=== PATIENT | female | born 1950 | race Caucasian/White ===

== ENCOUNTER → 2016-08-05 | Outpatient (CLI) | payer OTHER, MEDICARE | END | disposition home or self-care (01) | LOC: CFH 08:56 | PROVIDERS: ATTEND Specialist | DX: Z12.31 Encounter for screening mammogram for malignant neoplasm of breast (principal) | CPT/HCPCS: G0202 ==

== ENCOUNTER → 2016-11-27 | Outpatient (CLI) | payer OTHER, MEDICARE | END | disposition home or self-care (01) | LOC: CVU 07:03 | PROVIDERS: ATTEND Internal Medicine Cardiovascular Disease | DX: I65.23 Occlusion and stenosis of bilateral carotid arteries (principal); I35.0 Nonrheumatic aortic (valve) stenosis | CPT/HCPCS: 93880 ==

== ENCOUNTER 2016-12-18 09:06 | Day surgery (SDC) | payer OTHER, MEDICARE ==
[2016-12-17 09:19] LABS: HEMATOCRIT 42.6 % (34.6-47.8); HEMOGLOBIN 14.5 g/dL (11.7-16.4); WHITE BLOOD COUNT 4.1 x10^3/uL (3.4-10)
[2016-12-17 09:31] LABS: BLOOD UREA NITROGEN 11 mg/dL (7-18)
[~2016-12-18] VITALS: Ht 171.4 cm; Wt 61.4 kg
[~2016-12-18 09:06] MED LIST: ALBU18HF INH; Bioidentical Hormone PO; CETI10CA PO; CITA10TA4 PO; PROP10TA PO
[2016-12-18] MEDS ORDERED: SODIUM CHLORIDE 0.9% 1,000 ML IV SCH (09:56)
[2016-12-18] MEDS ORDERED: BISACODYL 10 MG SUPP PR PRN (10:00)
[2016-12-18] MEDS ORDERED: BISACODYL 5 MG EC TABLET PO PRN (10:00)
[2016-12-18] MEDS ORDERED: ACETAMINOPHEN 325 MG TABLET PO PRN (10:00)
[2016-12-18] MEDS ORDERED: ASPIRIN 325 MG TABLET EC PO ONE (10:00)
[2016-12-18] MEDS ORDERED: ONDANSETRON 2MG/ML, 2ML IVPush PRN (10:00)
[2016-12-18] MEDS ORDERED: ASPIRIN 325 MG TABLET EC ONE (11:11)
[2016-12-18] MEDS ORDERED: FENTANYL PF 100 MCG/2ML ONE (12:44)
[2016-12-18] MEDS ORDERED: HEPARIN 1,000 UNITS/ML, 10ML ONE (12:45)
[2016-12-18] MEDS ORDERED: MIDAZOLAM 1 MG/ML, 5ML ONE (12:45)
[2016-12-18] MEDS ORDERED: VERAPAMIL 2.5 MG/ML, 2ML ONE (12:45)
[2016-12-18] MEDS ORDERED: LIDOCAINE 2%, 20ML ONE (12:45)
[2016-12-18] MEDS ORDERED: ZOLPIDEM 5MG TABLET PO PRN (21:00)
== END 2016-12-18 16:50 ==
LOC: CACL 09:06
PROVIDERS: ATTEND Internal Medicine Cardiovascular Disease
DX: I25.10 Atherosclerotic heart disease of native coronary artery without angina pectoris (principal); J45.909 Unspecified asthma, uncomplicated; I35.0 Nonrheumatic aortic (valve) stenosis; Z88.0 Allergy status to penicillin; Z88.1 Allergy status to other antibiotic agents
CPT/HCPCS: 36415; 80048; 85025; 93005; 93458; 93567; 99156; 99157; C1760; C1894; J1644; J2250; J3010; J3490; Q9967

== ENCOUNTER → 2017-11-09 | Outpatient (CLI) | payer OTHER, MEDICARE ==
[~2017-11-09] MED LIST changes: +ACID1CAP PO; +BIOT25005 PO; +CHOL10002 PO; +CITA10TA8 PO; +ESTRADIOL VG; +IBUP1TAB PO; +IBUP200C8 PO; +MELA1TAB7 PO; +MONT10TA6 PO; +OMNIPAQUE 350 MG/ML, 100ML BOTTLE ONE; +PROGESTERONE VG; +VITA1TAB19 PO
[2017-11-09 11:53] LABS: CREATININE 0.75 mg/dL (0.55-1.02)
== END | disposition home or self-care (01) ==
LOC: RAD 10:53
PROVIDERS: ATTEND Thoracic Surgery (Cardiothoracic Vascular Surgery)
DX: Z01.810 Encounter for preprocedural cardiovascular examination (principal); I77.810 Thoracic aortic ectasia; I35.0 Nonrheumatic aortic (valve) stenosis
CPT/HCPCS: 36415; 71275; 74174; 82565; Q9967

== ENCOUNTER 2017-11-11 04:19 | Inpatient (IN) | payer OTHER, MEDICARE ==
[2017-11-10 14:04] LABS: MICROSCOPIC NOT IND
[2017-11-10 14:04] LABS: BASOPHILS # (AUTO) 0.02 x10^3/uL (0-0.1); BASOPHILS % (AUTO) 0 % (0-1); EOSINOPHILS # (AUTO) 0.07 x10^3/uL (0-0.4); EOSINOPHILS % (AUTO) 1 % (1-7); LYMPHOCYTES # (AUTO) 0.78 x10^3/uL (1-3.4); LYMPHOCYTES % (AUTO) 13 % (22-44); MD NO; MEAN CORPUSCULAR HEMOGLOBIN 33.9 pg (27.0-34.8); MEAN CORPUSCULAR HGB CONC 34.3 g/dL (32.4-35.8); MEAN CORPUSCULAR VOLUME 98.9 fL (80-100); MEAN PLATELET VOLUME 7.9 fL (7.4-10.4); MONOCYTES # (AUTO) 0.78 x10^3/uL (0.2-0.8); MONOCYTES % (AUTO) 13 % (2-9); NEUTROPHILS # (AUTO) 4.29 x10^3/uL (1.8-6.8); NEUTROPHILS % (AUTO) 72 % (42-75); PLATELET COUNT 260 x10^3/uL (130-400); RED BLOOD COUNT 4.17 x10^6/uL (3.82-5.3); RED CELL DISTRIBUTION WIDTH 12.2 % (9.6-15.2)
[2017-11-10 14:12] LABS: ALANINE AMINOTRANSFERASE 21 U/L (12-78); ALBUMIN 4.1 g/dL (3.4-5.0); ANION GAP 4 mmol/L (5-15); CALCIUM 9.4 mg/dL (8.5-10.1); CHLORIDE 103 mmol/L (98-107); CREATININE 0.69 mg/dL (0.55-1.02)
[2017-11-10 14:15] LABS: ALKALINE PHOSPHATASE 68 U/L (45-117); BILIRUBIN,TOTAL 0.7 mg/dL (0.2-1.0); TOTAL PROTEIN 7.4 g/dL (6.4-8.2)
[2017-11-10 14:23] LABS: INTERNATIONAL NORMALIZED RATIO 0.97 (0.93-1.1); PROTHROMBIN TIME 10.1 Seconds (9.6-11.5)
[2017-11-10 14:28] LABS: HEMOGLOBIN A1C 5.2 % (4.2-6.3)
[2017-11-11] VITALS (8 sets, daily range): BP systolic 116–163; BP diastolic 61–79
[~2017-11-11] VITALS: Ht 171.4 cm; Wt 65.8 kg
[~2017-11-11 04:19] MED LIST changes: -OMNIPAQUE 350 MG/ML, 100ML BOTTLE ONE
[2017-11-11] MEDS ORDERED: CHLORHEXIDINE 15 ML BOTTLE MM SCH (05:00)
[2017-11-11] MEDS ORDERED: INSULIN LISPRO 100 UNITS/ML, PEN SQ-INSULIN SCH (05:00)
[2017-11-11] MEDS: MUPIROCIN OINT 2%, 22GM TP SCH ×2 (05:20→21:03)
[2017-11-11] MEDS ORDERED: SUFentanil 50 MCG/ML, 5ML ONE (06:53)
[2017-11-11] MEDS ORDERED: MIDAZOLAM 10MG/2 ML ONE (06:53)
[2017-11-11] MEDS ORDERED: EPINEPHRINE 2 MG in SODIUM CHLORIDE 0.9% 248 ML IV SCH (07:30)
[2017-11-11] MEDS ORDERED: PHENYLEPHRINE 10 MG in SODIUM CHLORIDE 0.9% 249 ML IV PRN ×2 (07:30→10:10)
[2017-11-11] MEDS ORDERED: MANNITOL PMX 20% 500 ML IVPB PRN (07:30)
[2017-11-11] MEDS ORDERED: VANCOMYCIN 1,000 MG in SODIUM CHLORIDE 0.9% 250 ML IV PRN (07:30)
[2017-11-11] MEDS ORDERED: ALBUMIN HUMAN 5% 500 ML IV PRN (07:30)
[2017-11-11] MEDS ORDERED: DEXMEDETOMIDINE 200 MCG in SODIUM CHLORIDE 0.9% 48 ML IV SCH (07:30)
[2017-11-11] MEDS ORDERED: POTASSIUM CHLORIDE 80 MEQ, SODIUM BICARBONATE 8.4% 10 MEQ, MAGNESIUM SULFATE 0.5 GM, LI... IV PRN (07:30)
[2017-11-11] MEDS ORDERED: REGULAR INSULIN 62.5 UNITS in SODIUM CHLORIDE 0.9% 249.375 ML IV PRN ×2 (07:30→10:10)
[2017-11-11] MEDS ORDERED: PROPOFOL 10 MG/ML, 20ML ONE (08:56)
[2017-11-11] MEDS ORDERED: ROCURONIUM 10MG/ML,5ML ONE ×2 (08:56)
[2017-11-11] MEDS ORDERED: AMINOCAPROIC ACID 250 MG/ML, 20ML ONE ×2 (08:56)
[2017-11-11] MEDS: DOCUSATE 100 MG CAPSULE PO SCH ×2 (09:00→21:02)
[2017-11-11] MEDS ORDERED: VASOPRESSIN 50 UNIT in SODIUM CHLORIDE 0.9% 247.5 ML IV PRN (10:10)
[2017-11-11] MEDS ORDERED: SODIUM CHLORIDE 0.9% 1,000 ML IV PRN (10:10)
[2017-11-11] MEDS ORDERED: DOBUTAMINE 250 MG in SODIUM CHLORIDE 0.9% 230 ML IV PRN (10:10)
[2017-11-11] MEDS ORDERED: DEXMEDETOMIDINE 200 MCG in SODIUM CHLORIDE 0.9% 48 ML IV PRN (10:10)
[2017-11-11] MEDS ORDERED: BISACODYL 5 MG EC TABLET PO PRN (10:30)
[2017-11-11] MEDS ORDERED: MIDAZOLAM 1 MG/ML, 5ML IVPush PRN (10:30)
[2017-11-11] MEDS ORDERED: ACETAMINOPHEN 325 MG TABLET PO PRN (10:30)
[2017-11-11] MEDS ORDERED: EPINEPHRINE 2 MG in SODIUM CHLORIDE 0.9% 248 ML IV PRN (10:30)
[2017-11-11] MEDS ORDERED: LACTATED RINGERS 1,000 ML IV PRN (10:30)
[2017-11-11] MEDS: KSCALE TO 4.5 IV SCH ×3 (10:30→23:14)
[2017-11-11] MEDS ORDERED: CEFUROXIME 1.5 GM in SODIUM CHLORIDE 0.9% 50 ML IVPB SCH (10:30)
[2017-11-11] MEDS ORDERED: SODIUM BICARB 8.4%, 50ML SYRINGE IV PRN (10:30)
[2017-11-11] MEDS ORDERED: BISACODYL 10 MG SUPP PR PRN (10:30)
[2017-11-11] MEDS ORDERED: DEXTROSE 4 GM TAB.CHEW PO PRN (10:30)
[2017-11-11] MEDS ORDERED: ACETAMINOPHEN 650 MG SUPP PR PRN (10:30)
[2017-11-11] MEDS ORDERED: OXYcodone IR 5MG TABLET PO PRN (10:30)
[2017-11-11] MEDS ORDERED: DEXTROSE 50%, 50ML SYRINGE IVPush PRN (10:30)
[2017-11-11] MEDS ORDERED: morphine SULFATE 10 MG/ML, 1ML IVPush PRN (10:30)
[2017-11-11] MEDS ORDERED: INSULIN REGULAR 100 UNITS/ML, 3ML VIAL IVPush PRN (10:30)
[2017-11-11] MEDS ORDERED: PROCHLORPERAZINE 5 MG/ML, 2ML IVPush PRN (10:30)
[2017-11-11] MEDS ORDERED: MAGNESIUM SULFATE 1 GM in SODIUM CHLORIDE 0.9% 50 ML IVPB SCH (10:30)
[2017-11-11] MEDS ORDERED: GLUCAGON 1 MG IM PRN (10:30)
[2017-11-11] MEDS ORDERED: SODIUM BICARB 8.4%, 50ML SYRINGE ONE (10:43)
[2017-11-11] MEDS ORDERED: SODIUM BICARBONATE 1 MEQ/ML, 50ML VIAL ONE (10:43)
[2017-11-11] MEDS ORDERED: LIDOCAINE 2% 100MG/5ML SYRINGE ONE (10:43)
[2017-11-11] MEDS ORDERED: HEPARIN 1,000 UNITS/ML, 30ML ONE (10:43)
[2017-11-11] MEDS ORDERED: ALBUMIN HUMAN 25% 50 ML ONE (10:44)
[2017-11-11 10:50] LABS: GLUCOSE BY BLOOD GAS ANALYZER 130 mg/dL (70-110); POTASSIUM BY BLOOD GAS ANALYZR 4.1 mmol/L (3.6-5.5)
[2017-11-11 10:51] LABS: FIO2 80 %
[2017-11-11] MEDS ORDERED: CALCIUM CHLORIDE 13.6 MEQ in SODIUM CHLORIDE 0.9% 100 ML IV ONE (11:00)
[2017-11-11] MEDS: INSULIN LISPRO 100 UNITS/ML, PEN SQ-INSULIN SCH ×3 (11:00→21:03)
[2017-11-11] MEDS ORDERED: PROTAMINE SULFATE 10 MG/ML, 5ML IVPush ONE (11:00)
[2017-11-11 11:15] LABS: INTERNATIONAL NORMALIZED RATIO 1.4 (0.93-1.1); PROTHROMBIN TIME 14.5 Seconds (9.6-11.5)
[2017-11-11] MEDS ORDERED: MIDAZOLAM 1 MG/ML, 2ML ONE (11:51)
[2017-11-11] MEDS: SODIUM CHLORIDE FLUSH 10ML SYR IVF SCH ×3 (12:41→21:06)
[2017-11-11] MEDS: NITROGLYCERIN/D5W PMX 250 ML IV PRN (12:45)
[2017-11-11] MEDS ORDERED: NOVOSEVEN RT (FACTOR VIIA) RECOMB 1,000 MCG IVPush ONE (13:30)
[2017-11-11] MEDS: FENTANYL PF 100 MCG/2ML IVPush PRN ×3 (14:20→21:02)
[2017-11-11] MEDS: ONDANSETRON 2MG/ML, 2ML IVPush PRN (16:53)
[2017-11-11] MEDS ORDERED: POTASSIUM CHLORIDE PMX 100 ML IV ONE (17:30)
[2017-11-11] MEDS ORDERED: WARFARIN 5 MG TABLET PO-COUM ONE (18:00)
[2017-11-11] MEDS: VANCOMYCIN 900 MG in SODIUM CHLORIDE 0.9% 250 ML IVPB SCH (18:42)
[2017-11-11] MEDS: MUPIROCIN OINT 2%, 22GM NAS SCH (21:05)
[2017-11-11] MEDS: HYDROcodone/APAP 10/325 MG TABLET PO PRN (22:43)
[2017-11-12 00:09] VITALS: BP 116/50
[2017-11-12] MEDS: HYDROcodone/APAP 10/325 MG TABLET PO PRN ×2 (04:31→20:59)
[2017-11-12 04:51] VITALS: BP 107/51
[2017-11-12 05:11] LABS: BASOPHILS # (AUTO) 0.01 x10^3/uL (0-0.1); BASOPHILS % (AUTO) 0 % (0-1); EOSINOPHILS % (AUTO) 0 % (1-7); LYMPHOCYTES # (AUTO) 0.17 x10^3/uL (1-3.4); LYMPHOCYTES % (AUTO) 1 % (22-44); MD NO; MEAN CORPUSCULAR VOLUME 96.9 fL (80-100); MONOCYTES # (AUTO) 0.82 x10^3/uL (0.2-0.8); MONOCYTES % (AUTO) 7 % (2-9); NEUTROPHILS # (AUTO) 11.26 x10^3/uL (1.8-6.8); NEUTROPHILS % (AUTO) 92 % (42-75); PLATELET COUNT 128 x10^3/uL (130-400); RED BLOOD COUNT 2.47 x10^6/uL (3.82-5.3); RED CELL DISTRIBUTION WIDTH 12.8 % (9.6-15.2)
[2017-11-12 05:16] LABS: CHLORIDE 112 mmol/L (98-107)
[2017-11-12 05:26] LABS: ALBUMIN 2.7 g/dL (3.4-5.0); ANION GAP 10 mmol/L (5-15); CALCIUM 7.3 mg/dL (8.5-10.1); CREATININE 0.49 mg/dL (0.55-1.02)
[2017-11-12 05:32] LABS: INTERNATIONAL NORMALIZED RATIO 1.03 (0.93-1.1); PROTHROMBIN TIME 10.7 Seconds (9.6-11.5)
[2017-11-12] MEDS ORDERED: POTASSIUM CHLORIDE PMX 100 ML IV ONE (07:00)
[2017-11-12] MEDS: INSULIN LISPRO 100 UNITS/ML, PEN SQ-INSULIN SCH ×4 (07:00→21:08)
[2017-11-12] MEDS: KSCALE TO 4.5 IV SCH (07:23)
[2017-11-12] MEDS: NITROGLYCERIN/D5W PMX 250 ML IV PRN (07:25)
[2017-11-12] MEDS ORDERED: KETOROLAC 30 MG/1 ML IM PRN (08:00)
[2017-11-12] MEDS: SODIUM CHLORIDE FLUSH 10ML SYR IVF SCH ×4 (08:09→20:58)
[2017-11-12] MEDS: DOCUSATE 100 MG CAPSULE PO SCH ×2 (08:13→20:59)
[2017-11-12] MEDS: CITALOPRAM 10 MG TABLET PO SCH (08:14)
[2017-11-12] MEDS: MUPIROCIN OINT 2%, 22GM NAS SCH ×2 (08:15→20:59)
[2017-11-12] MEDS: VANCOMYCIN 900 MG in SODIUM CHLORIDE 0.9% 250 ML IVPB SCH (08:15)
[2017-11-12] MEDS: WARFARIN BIOPROSTHETIC VALVE PROTOCOL 2-3 XX SCH (08:17)
[2017-11-12] MEDS: ASPIRIN 81 MG TABLET EC PO SCH (08:17)
[2017-11-12] MEDS: KETOROLAC 30 MG/1 ML IVPush PRN ×2 (08:23→14:33)
[2017-11-12] MEDS ORDERED: LISINOPRIL 5 MG TABLET PO SCH (09:00)
[2017-11-12] MEDS: CHLORHEXIDINE 15 ML BOTTLE MM SCH ×2 (10:50→22:30)
[2017-11-12] MEDS: MAGNESIUM SULFATE 1 GM in DEXTROSE 5% 100 ML IVPB SCH (10:50)
[2017-11-12] MEDS: HYDROcodone/APAP 5/325 TABLET PO PRN ×2 (10:58→18:39)
[2017-11-12] MEDS ORDERED: WARFARIN 5 MG TABLET PO-COUM ONE (18:00)
[2017-11-12] MEDS: ONDANSETRON 2MG/ML, 2ML IVPush PRN (18:09)
[2017-11-12] MEDS: LISINOPRIL 5 MG TABLET PO SCH (20:59)
[2017-11-13 04:17] VITALS: BP 126/62
[2017-11-13 04:31] LABS: MEAN CORPUSCULAR HEMOGLOBIN 34.3 pg (27.0-34.8); MEAN CORPUSCULAR VOLUME 97.8 fL (80-100); MEAN PLATELET VOLUME 8.6 fL (7.4-10.4); PLATELET COUNT 125 x10^3/uL (130-400); RED BLOOD COUNT 2.69 x10^6/uL (3.82-5.3); RED CELL DISTRIBUTION WIDTH 13.7 % (9.6-15.2)
[2017-11-13] MEDS: HYDROcodone/APAP 5/325 TABLET PO PRN ×2 (04:34→14:02)
[2017-11-13] MEDS: ONDANSETRON 2MG/ML, 2ML IVPush PRN ×2 (04:34→20:11)
[2017-11-13 04:40] LABS: ANION GAP 5 mmol/L (5-15); CALCIUM 7.7 mg/dL (8.5-10.1); CHLORIDE 106 mmol/L (98-107); CREATININE 0.52 mg/dL (0.55-1.02)
[2017-11-13 04:44] LABS: INTERNATIONAL NORMALIZED RATIO 0.99 (0.93-1.1); PROTHROMBIN TIME 10.3 Seconds (9.6-11.5)
[2017-11-13 05:49] LABS: MD YES
[2017-11-13 05:50] LABS: <PLATELET ESTIMATE> DECREASED; <PLT MORPHOLOGY> NORMAL PLT MORPH; <RBC MORPHOLOGY> NORMAL; BAND#(MANUAL) 0.29 x10^3/uL; BANDS%(MANUAL) 2 % (0-7); LYMPH#(MANUAL) 0.58 x10^3/uL (1-3.4); LYMPHS% (MANUAL) 4 % (22-44); MONOS#(MANUAL) 0.58 x10^3/uL (0.3-2.7); MONOS% (MANUAL) 4 % (2-9); SEG#(MANUAL) 13.14 x10^3/uL (1.8-6.8); SEGS% (MANUAL) 90 % (42-75)
[2017-11-13] MEDS: INSULIN LISPRO 100 UNITS/ML, PEN SQ-INSULIN SCH ×4 (07:00→20:19)
[2017-11-13] MEDS: SODIUM CHLORIDE FLUSH 10ML SYR IVF SCH ×4 (07:22→21:57)
[2017-11-13] MEDS: ASPIRIN 81 MG TABLET EC PO SCH (07:58)
[2017-11-13] MEDS: MUPIROCIN OINT 2%, 22GM NAS SCH ×2 (07:58→22:47)
[2017-11-13] MEDS: LISINOPRIL 5 MG TABLET PO SCH ×2 (07:58→21:54)
[2017-11-13] MEDS: CITALOPRAM 10 MG TABLET PO SCH (07:58)
[2017-11-13] MEDS: DOCUSATE 100 MG CAPSULE PO SCH ×2 (07:58→21:54)
[2017-11-13] MEDS: WARFARIN BIOPROSTHETIC VALVE PROTOCOL 2-3 XX SCH (09:00)
[2017-11-13] MEDS ORDERED: MAGNESIUM HYDROXIDE 8%, 30ML UDC PO PRN (09:30)
[2017-11-13] MEDS: POTASSIUM CHLORIDE 20 MEQ TAB.ER.PRT PO SCH (10:41)
[2017-11-13] MEDS: CHLORHEXIDINE 15 ML BOTTLE MM SCH ×2 (10:42→21:54)
[2017-11-13] MEDS: MAGNESIUM SULFATE 1 GM in DEXTROSE 5% 100 ML IVPB SCH (10:42)
[2017-11-13] MEDS: FUROSEMIDE 40 MG/4 ML IV SCH (10:42)
[2017-11-13 12:55] VITALS: BP 148/78
[2017-11-13] MEDS ORDERED: WARFARIN 5 MG TABLET PO-COUM ONE (18:00)
[2017-11-13 19:20] VITALS: BP 149/85
[2017-11-13] MEDS: KETOROLAC 30 MG/1 ML IVPush PRN (22:08)
[2017-11-14 02:08] VITALS: BP 157/88
[2017-11-14 04:02] LABS: BASOPHILS # (AUTO) 0.02 x10^3/uL (0-0.1); BASOPHILS % (AUTO) 0 % (0-1); EOSINOPHILS # (AUTO) 0.01 x10^3/uL (0-0.4); EOSINOPHILS % (AUTO) 0 % (1-7); LYMPHOCYTES # (AUTO) 0.53 x10^3/uL (1-3.4); LYMPHOCYTES % (AUTO) 6 % (22-44); MD NO; MEAN CORPUSCULAR HEMOGLOBIN 34.2 pg (27.0-34.8); MEAN CORPUSCULAR HGB CONC 34.9 g/dL (32.4-35.8); MEAN CORPUSCULAR VOLUME 97.9 fL (80-100); MEAN PLATELET VOLUME 8.5 fL (7.4-10.4); MONOCYTES # (AUTO) 0.76 x10^3/uL (0.2-0.8); MONOCYTES % (AUTO) 8 % (2-9); NEUTROPHILS # (AUTO) 7.78 x10^3/uL (1.8-6.8); NEUTROPHILS % (AUTO) 86 % (42-75); PLATELET COUNT 113 x10^3/uL (130-400); RED BLOOD COUNT 2.47 x10^6/uL (3.82-5.3); RED CELL DISTRIBUTION WIDTH 12.9 % (9.6-15.2)
[2017-11-14] MEDS: ONDANSETRON 2MG/ML, 2ML IVPush PRN (04:03)
[2017-11-14 04:06] LABS: ANION GAP 6 mmol/L (5-15); CALCIUM 7.6 mg/dL (8.5-10.1); CHLORIDE 103 mmol/L (98-107); CREATININE 0.49 mg/dL (0.55-1.02)
[2017-11-14] MEDS: SODIUM CHLORIDE FLUSH 10ML SYR IVF SCH ×4 (07:41→22:22)
[2017-11-14] MEDS: WARFARIN BIOPROSTHETIC VALVE PROTOCOL 2-3 XX SCH (07:41)
[2017-11-14 08:37] VITALS: BP 156/81
[2017-11-14] MEDS: LISINOPRIL 5 MG TABLET PO SCH (08:50)
[2017-11-14] MEDS: ASPIRIN 81 MG TABLET EC PO SCH (08:51)
[2017-11-14] MEDS: FUROSEMIDE 40 MG/4 ML IV SCH (08:51)
[2017-11-14] MEDS: POTASSIUM CHLORIDE 20 MEQ TAB.ER.PRT PO SCH (08:51)
[2017-11-14] MEDS: DOCUSATE 100 MG CAPSULE PO SCH ×2 (08:51→22:23)
[2017-11-14] MEDS: MUPIROCIN OINT 2%, 22GM NAS SCH ×2 (08:51→22:21)
[2017-11-14] MEDS: CITALOPRAM 10 MG TABLET PO SCH (08:51)
[2017-11-14] MEDS ORDERED: METOPROLOL TARTRATE 25 MG TABLET ONE (08:59)
[2017-11-14] MEDS: LISINOPRIL 20 MG TABLET PO SCH ×2 (09:01→22:20)
[2017-11-14] MEDS ORDERED: LISINOPRIL 10 MG TABLET ONE (09:05)
[2017-11-14] MEDS: METOPROLOL TARTRATE 25 MG TABLET PO SCH ×2 (09:06→18:06)
[2017-11-14 09:13] LABS: INTERNATIONAL NORMALIZED RATIO 1.18 (0.93-1.1); PROTHROMBIN TIME 12.2 Seconds (9.6-11.5)
[2017-11-14] MEDS ORDERED: LISINOPRIL 10 MG TABLET PO ONE ×2 (09:30)
[2017-11-14] MEDS: HYDROcodone/APAP 5/325 TABLET PO PRN ×2 (16:31→22:21)
[2017-11-14] MEDS ORDERED: WARFARIN 7.5 MG TABLET PO-COUM ONE (18:00)
[2017-11-14 20:14] VITALS: BP 133/77
[2017-11-15 01:48] VITALS: BP 135/72
[2017-11-15 05:33] LABS: BASOPHILS # (AUTO) 0.01 x10^3/uL (0-0.1); BASOPHILS % (AUTO) 0 % (0-1); EOSINOPHILS # (AUTO) 0.07 x10^3/uL (0-0.4); EOSINOPHILS % (AUTO) 1 % (1-7); LYMPHOCYTES # (AUTO) 0.64 x10^3/uL (1-3.4); LYMPHOCYTES % (AUTO) 9 % (22-44); MD NO; MEAN CORPUSCULAR HEMOGLOBIN 34.2 pg (27.0-34.8); MEAN CORPUSCULAR HGB CONC 34.9 g/dL (32.4-35.8); MEAN PLATELET VOLUME 8.7 fL (7.4-10.4); MONOCYTES # (AUTO) 0.84 x10^3/uL (0.2-0.8); MONOCYTES % (AUTO) 12 % (2-9); NEUTROPHILS # (AUTO) 5.74 x10^3/uL (1.8-6.8); NEUTROPHILS % (AUTO) 79 % (42-75); PLATELET COUNT 165 x10^3/uL (130-400); RED BLOOD COUNT 2.99 x10^6/uL (3.82-5.3); RED CELL DISTRIBUTION WIDTH 13.1 % (9.6-15.2)
[2017-11-15 05:36] LABS: CHLORIDE 102 mmol/L (98-107); INTERNATIONAL NORMALIZED RATIO 1.48 (0.93-1.1); PROTHROMBIN TIME 15.3 Seconds (9.6-11.5)
[2017-11-15 05:43] LABS: ANION GAP 8 mmol/L (5-15); CALCIUM 8.6 mg/dL (8.5-10.1); CREATININE 0.58 mg/dL (0.55-1.02)
[2017-11-15 06:17] VITALS: BP 151/75
[2017-11-15] MEDS: METOPROLOL TARTRATE 25 MG TABLET PO SCH ×2 (06:19→17:44)
[2017-11-15] MEDS: HYDROcodone/APAP 5/325 TABLET PO PRN ×2 (06:19→21:33)
[2017-11-15] MEDS: SODIUM CHLORIDE FLUSH 10ML SYR IVF SCH ×4 (08:48→21:34)
[2017-11-15] MEDS: WARFARIN BIOPROSTHETIC VALVE PROTOCOL 2-3 XX SCH (08:48)
[2017-11-15 08:50] VITALS: BP 115/62
[2017-11-15] MEDS: CITALOPRAM 10 MG TABLET PO SCH (08:50)
[2017-11-15] MEDS: DOCUSATE 100 MG CAPSULE PO SCH ×2 (08:50→21:33)
[2017-11-15] MEDS: LISINOPRIL 20 MG TABLET PO SCH ×2 (08:51→21:33)
[2017-11-15] MEDS: ASPIRIN 81 MG TABLET EC PO SCH (08:51)
[2017-11-15] MEDS: MUPIROCIN OINT 2%, 22GM NAS SCH ×2 (09:00→21:35)
[2017-11-15 13:49] VITALS: BP 125/72
[2017-11-15] MEDS ORDERED: WARFARIN 5 MG TABLET PO-COUM ONE (17:39)
[2017-11-15] MEDS ORDERED: WARFARIN 10 MG TABLET PO-COUM ONE (18:00)
[2017-11-15 21:28] VITALS: BP 161/84
[2017-11-16 02:53] VITALS: BP 154/80
[2017-11-16 04:56] LABS: BASOPHILS # (AUTO) 0.01 x10^3/uL (0-0.1); BASOPHILS % (AUTO) 0 % (0-1); EOSINOPHILS # (AUTO) 0.14 x10^3/uL (0-0.4); EOSINOPHILS % (AUTO) 2 % (1-7); LYMPHOCYTES # (AUTO) 0.48 x10^3/uL (1-3.4); LYMPHOCYTES % (AUTO) 8 % (22-44); MD NO; MEAN CORPUSCULAR HEMOGLOBIN 33.7 pg (27.0-34.8); MEAN CORPUSCULAR HGB CONC 34.1 g/dL (32.4-35.8); MEAN CORPUSCULAR VOLUME 98.9 fL (80-100); MEAN PLATELET VOLUME 8.1 fL (7.4-10.4); MONOCYTES % (AUTO) 12 % (2-9); NEUTROPHILS # (AUTO) 4.52 x10^3/uL (1.8-6.8); NEUTROPHILS % (AUTO) 77 % (42-75); PLATELET COUNT 200 x10^3/uL (130-400); RED BLOOD COUNT 2.75 x10^6/uL (3.82-5.3); RED CELL DISTRIBUTION WIDTH 13.1 % (9.6-15.2)
[2017-11-16 05:07] LABS: ANION GAP 8 mmol/L (5-15); CALCIUM 8.2 mg/dL (8.5-10.1); CHLORIDE 101 mmol/L (98-107); INTERNATIONAL NORMALIZED RATIO 2.36 (0.93-1.1); PROTHROMBIN TIME 24.1 Seconds (9.6-11.5)
[2017-11-16 05:08] LABS: CREATININE 0.49 mg/dL (0.55-1.02)
[2017-11-16] MEDS: HYDROcodone/APAP 5/325 TABLET PO PRN (06:46)
[2017-11-16 06:47] VITALS: BP 160/75
[2017-11-16] MEDS: METOPROLOL TARTRATE 25 MG TABLET PO SCH (06:47)
[2017-11-16 07:56] VITALS: BP 153/76
[2017-11-16] MEDS ORDERED: ASPI-621 PO (08:44)
[2017-11-16] MEDS ORDERED: HYDR-3240 PO (08:44)
[2017-11-16] MEDS ORDERED: LISI-170 PO (08:44)
[2017-11-16] MEDS ORDERED: AMLO5TAB2 PO (08:44)
[2017-11-16] MEDS ORDERED: METO25TA35 PO (08:44)
[2017-11-16] MEDS ORDERED: WARF2.5T PO-COUM (08:44)
[2017-11-16] MEDS ORDERED: ALPR0.254 PO (08:44)
[2017-11-16] MEDS: MUPIROCIN OINT 2%, 22GM NAS SCH (08:45)
[2017-11-16] MEDS: SODIUM CHLORIDE FLUSH 10ML SYR IVF SCH ×2 (08:46)
[2017-11-16] MEDS: DOCUSATE 100 MG CAPSULE PO SCH (08:50)
[2017-11-16] MEDS: CITALOPRAM 10 MG TABLET PO SCH (08:50)
[2017-11-16] MEDS: ASPIRIN 81 MG TABLET EC PO SCH (08:50)
[2017-11-16] MEDS: LISINOPRIL 20 MG TABLET PO SCH (08:51)
[2017-11-16] MEDS: WARFARIN BIOPROSTHETIC VALVE PROTOCOL 2-3 XX SCH (08:51)
[2017-11-16] MEDS ORDERED: AMLODIPINE 5 MG TABLET PO SCH (09:00)
[2017-11-16] MEDS ORDERED: WARFARIN 2.5 MG TABLET PO-COUM ONE (18:00)
== END 2017-11-16 12:15 | disposition home or self-care (01) | DRG 853 ==
LOC: 5SO 04:19 → CCU 08:59 → CSU 09:49 → 5SO 11-13 13:15 → DCLOUNGE 11-16 11:31
PROVIDERS: ADMIT Thoracic Surgery (Cardiothoracic Vascular Surgery); ATTEND Thoracic Surgery (Cardiothoracic Vascular Surgery)
PROC: 02RX08Z Replacement of Thoracic Aorta, Ascending/Arch with Zooplastic Tissue, Open Approach (ICD-10-PCS; 2017-11-11)
PROC: 5A1221Z Performance of Cardiac Output, Continuous (ICD-10-PCS; 2017-11-11)
PROC: B24BZZ4 Ultrasonography of Heart with Aorta, Transesophageal (ICD-10-PCS; 2017-11-11)
PROC: 30233K1 Transfusion of Nonautologous Frozen Plasma into Peripheral Vein, Percutaneous Approach (ICD-10-PCS; 2017-11-11)
PROC: 30233R1 Transfusion of Nonautologous Platelets into Peripheral Vein, Percutaneous Approach (ICD-10-PCS; 2017-11-11)
PROC: 02RF08Z Replacement of Aortic Valve with Zooplastic Tissue, Open Approach (ICD-10-PCS; principal; 2017-11-11 07:30)
DX: A41.9 Sepsis, unspecified organism (principal); J96.00 Acute respiratory failure, unspecified whether with hypoxia or hypercapnia; F41.9 Anxiety disorder, unspecified; I08.0 Rheumatic disorders of both mitral and aortic valves; I71.2 Thoracic aortic aneurysm, without rupture; I10 Essential (primary) hypertension; J45.990 Exercise induced bronchospasm; R65.20 Severe sepsis without septic shock; Z86.79 Personal history of other diseases of the circulatory system; Z87.81 Personal history of (healed) traumatic fracture; Z82.49 Family history of ischemic heart disease and other diseases of the circulatory system; Z79.899 Other long term (current) drug therapy; Z88.0 Allergy status to penicillin
CPT/HCPCS: 36415; 36600; S0017; 71045; 71046; 80048; 80053; 81003; 82040; 82330; 82800; 82803; 82810; 82947; 82962; 83036; 83735; 84132; 84295; 85014; 85018; 85025; 85049; 85347; 85610; 85730; 86850; 86900; 86923; 87081; 88304; 88305; 88311; 93005; 93312; 93321; 93325; 93880; 94002; 94150; C1768; J1644; J1815; J1885; J1940; J2250; J2405; J2704; J2720; J3010; J3370; J3475; J3480; J3490; P9045; P9047; C1751; C1760; C1762; J0171; J0780; J2370; J7050; J7120; P9012; P9016; P9017; P9035

== ENCOUNTER 2018-09-16 08:36 | Outpatient (CLI) | payer OTHER, MEDICARE ==
[~2018-09-16 08:36] MED LIST changes: +ALPR0.254 PO; +AMLO-150 PO; +ASPI81TA45 PO; +HYDR-3240 PO; +LISI-170 PO; +METO25TA35 PO; -PROP10TA PO; +PROP10TA16 PO; +WARF2.5T PO-COUM
== END 2018-09-16 23:59 | disposition home or self-care (01) ==
LOC: CFH 08:36
PROVIDERS: ATTEND Otolaryngology
DX: J32.0 Chronic maxillary sinusitis (principal); R05 Cough
CPT/HCPCS: 70486

== ENCOUNTER → 2019-03-06 | Outpatient (CLI) | payer MEDICARE, OTHER | END | disposition home or self-care (01) | LOC: CFH 08:56 | PROVIDERS: ATTEND Internal Medicine Cardiovascular Disease | DX: I34.0 Nonrheumatic mitral (valve) insufficiency (principal); Z95.4 Presence of other heart-valve replacement; Z85.89 Personal history of malignant neoplasm of other organs and systems | CPT/HCPCS: 93306 ==

== ENCOUNTER → 2019-10-30 | Outpatient (CLI) | payer MEDICARE ==
[~2019-10-30] MED LIST changes: -WARF2.5T PO-COUM; +WARF2.5T2 PO-COUM
== END | disposition home or self-care (01) ==
LOC: OUT 08:35
PROVIDERS: ATTEND Specialist
DX: Z12.31 Encounter for screening mammogram for malignant neoplasm of breast (principal); R05 Cough; K44.9 Diaphragmatic hernia without obstruction or gangrene
CPT/HCPCS: 74240; 77063; 77067

== ENCOUNTER → 2020-11-15 | Outpatient (CLI) | payer MEDICARE ==
[~2020-11-15] MED LIST changes: +HYDR-2214 PO; -HYDR-3240 PO
== END | disposition home or self-care (01) ==
LOC: CFH 12:02
PROVIDERS: ATTEND Specialist
DX: Z12.31 Encounter for screening mammogram for malignant neoplasm of breast (principal)
CPT/HCPCS: 77063; 77067